=== PATIENT | female | born 1985 | race Caucasian/White ===

== ENCOUNTER 2017-01-23 05:34 | Inpatient (IN) | payer BC ==
--- NOTE | 2017-01-22 20:42 | PCM.LDHP ---
L&D History of Present Illness - General Date of Service: 01/22/17 Admit Problem/Dx: Admission Diagnosis/Problem Admission Diagnosis/Problem 01/22/17 20:29 Janeth is a 31-year-old 2 para 1001 white female who is admitted on 01/23 at 39-1/7 weeks gestational age for a scheduled repeat section. KEVIN is 01/29/2017 based upon a 13-1/7 week ultrasound done on 07/25/2016. First section was done secondary to a true knot in the cord. Patient has been advised as to options of delivery including vaginal after section or repeat section. She opts at this time for elective repeat section. Procedure, risks, benefits, follow-up are discussed with patient in detail. She wishes to proceed and signed consent. 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 Previous delivery include a male born 12/05/2014 at 39 weeks gestational age of 21.5 hours of labor. Baby weighed 7 lbs. 6 oz. and was delivered by primary section for an umbilical cord true knot. Child's name is Julio C MILLS. Patient had menarche at age 13. Cycles come every 28 days. Certainly this menstrual period started on 05/02/2016 not using any control time conception. Positive hCG is on 05/22/2016. course: patient was seen for her first visit on 07/25/2016 at 13 -1/7 weeks gestational age. She was seen on a regular basis and gained approximately 27 pounds in . Her vital signs remained stable throughout the course and her fundal height growth was appropriate. No significant problems were noted during the . She contemplated but since she has not gone into labor at this time is desiring a repeat section. Patient declined genetic evaluation. She had an [place] depression screen on 09/19/2016 which was scored 0. B strep screen is negative. She is rubella nonimmune and therefore is a candidate for measles mumps and rubella immunization after delivery. 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 She has a thyroid nodule. laboratory testing: Her blood is O+. Negative antibody screen. Initial labs showed hemoglobin 13.6 g/dL. Platelets are 297,000. Pap smear was negative. Rubella titer was not immune. RPR is nonreactive. Urine culture was normal. Hepatitis B surface antigen and HIV assays were negative. Chlamydia and gonorrhea are both negative. TSH was normal at 0.618 mU/L. Trimester labs including hemoglobin 11.6 g/dL and a platelet count of 263,000. One-hour GTT was normal at 105. Her TSH and second trimester was normal at 0.790. Group B strep screen was negative. Allergies: penicillin which causes dizziness and rash. Patient has no problems with cephalexin. Medications: 1. Zantac 150 mg daily when necessary for dyspepsia 2. Tylenol PM when necessary 3. vitamins daily 4. Ferrous sulfate 325 mg daily 5. Calcium 600 mg 1 tablet daily Past medical history: 1. iriditis 2. Harsh induced hypertension Past surgical history: 1. 2013. 2. Appendectomy 2004 3. [place] teeth extraction 2006. Family history: Mother and father are alive and well. Mother does have hypercholesterolemia. One brother is alive and well. Maternal grandmother is alive with heart disease and coronary artery bypass surgery. Also has had cancer. Maternal grandmother is secondary to stomach cancer. Paternal grandmother secondary to old age and dementia. Paternal grandfather with history of motor vehicle accident age 60 resulting in his . No , clotting, bleeding or anesthesia problems noted in the family. Social history: Patient is single. She lives in [facility] with her significant other Cruz Roth. She is a college graduate. 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 She denies any significant amounts of alcohol, drugs or tobacco. Review of systems: In general patient has no significant complaints this time. Skin: Negative Respiratory: No shortness of breath or infectious symptoms Cardiovascular: No chest pain or exercise intolerance Breasts: Changes associated only GI: Negative : Changes associated Neurological: Negative Musculoskeletal: Negative Physical exam: General the patient is a well-developed, well-nourished, pleasant pleasant female in no acute distress. Blood pressure last evaluation clinic 01/22/2017 was 108/70. Weight was 216.8 with a first weight of 189 pounds. heart rate is 155. Her prepregnancy BMI was 30.8 and her prepregnancy weight was 185 pounds. Her rate is 5 feet 5 In general the patient is well-developed, well-nourished, pleasant female of stated age in no acute distress. Skin is warm dry without lesions. HEENT, neck and back within normal limits Lungs are clear with good breath sounds in all lung juarez. 30 W. exam shows regular rate Without murmurs. Breast exam is deferred abdomen done first visit and functioning normal. Patient does plan to nurse. Abdomen is protuberant with last fundal height clinic at 41 cm. Baby is in a vertex presentation by Jose Guadalupe maneuver. Cervical exam shows cervix to be 2+ centimeters, mid position, soft, -3, 80% effaced. Extremities show no significant edema at this time Neurological exam is grossly within normal limits. Source of Information: Patient History Limitations: Reports: No Limitations - Related Data Allergies/Adverse Reactions: Allergies Allergy/AdvReac Type Severity Reaction Status Date / Time amoxicillin [Amoxicillin] Allergy Hives Verified 12/05/13 02:41 ampicillin Allergy Hives Verified 12/05/13 02:41 coconut oil Allergy Difficulty Verified 12/05/13 02:41 Breathing Home Medications: Home Meds Ibuprofen [Motrin] 600 mg PO Q6H 12/08/13 [History] oxyCODONE HCl/Acetaminophen [Percocet 5-325 mg Tablet] 1 tab PO Q4HR 12/08/13 [ History] Past Medical History - Past Health History Medical/Surgical History: Denies Medical/Surgical History Social & Family History - Tobacco Use Smoking Status *Q: Light Tobacco Smoker Years of Tobacco use: 6 Used Tobacco, but Quit: Yes Month Tobacco Last Used: oct 2011 - Alcohol Use Days Per Week of Alcohol Use: 0 - Recreational Drug Use Recreational Drug Use: No H&P Review of Systems - Review of Systems: Review Of Systems: See Below L&D Exam - Exam Exam: See Below Problem List Initiated/Reviewed/Updated: Yes Assessment/Plan Comment:: Assessment: 1. 39-1/7 weeks gestational age admitted for scheduled repeat section. Procedure, risks, benefits, alternatives of care including an attempt at are all discussed with patient. She appears to understand, and wishes to proceed. Consent is signed. 2. Patient plans to breast-feed 3. Risk factors for the include history of previous section, thyroid nodule, presents induced hypertension with first , rubella nonimmune 4. Allergy to penicillin but okay with cephalosporins by history. 5. Group B strep negative. Plan: 1. Repeat lower uterine segment transverse section through Pfannenstiel skin incision under spinal block. 2. DVT prophylaxis with SCDs 3. Infection prophylaxis with 2 grams Ancef. 4. Preoperative evaluation consisted of a CBC, type and screen, urinalysis, TSH and free T4 5. Support plans to nurse the baby. 6. MMR after delivery and prior to discharge from the hospital
[~2017-01-23 05:34] MED LIST: Sodium Chloride 0.9% 10 ML Syringe FLUSH PRN
[2017-01-23] MEDS: Lactated Ringers 1,000 ML IV SCH ×3 (06:00→07:24)
[2017-01-23] MEDS ORDERED: Metoclopramide 10 MG/2 ML SDV IVPUSH ONE (06:00)
[2017-01-23] MEDS ORDERED: Citric Acid/Sodium Citrate Solution 30 ML Cup PO ONE (06:00)
[2017-01-23] MEDS ORDERED: Bupivacaine 0.5% 30 ML SDV ONE (06:54)
[2017-01-23] MEDS ORDERED: Morphine PF 10 MG/10 ML SDV ONE (06:55)
[2017-01-23] MEDS ORDERED: Oxytocin 10 Units/1 ML SDV ONE (06:56)
[2017-01-23] MEDS ORDERED: ceFAZolin 1 GM Vial ONE (06:56)
[2017-01-23] MEDS ORDERED: Ondansetron 4 MG/2 ML SDV ONE (06:56)
--- NOTE | 2017-01-23 07:19 | PCM.PREANE ---
Preanesthetic Assessment - Anesthesia/Transfusion/Family Hx Anesthesia History: Prior Anesthesia Without Reaction Family History of Anesthesia Reaction: No Transfusion History: No Prior Transfusion(s) Intubation History: Unknown - Review of Systems General: No Symptoms Pulmonary: No Symptoms Cardiovascular: No Symptoms Gastrointestinal: Other (GERD ) Neurological: No Symptoms Other: Reports: None, Thyroid Problems (post thyroiditis ) - Physical Assessment NPO Status Date: 01/22/17 NPO Status Time: 21:00 Pulse: 92 O2 Sat by Pulse Oximetry: 99 Respiratory Rate: 1 Blood Pressure: 117/75 Temperature: 36.3 C Vital Signs: Last Vital Signs Temp 36.3 C 01/23/17 05:49 Pulse 92 01/23/17 05:49 Resp 1 L 01/23/17 05:49 BP 117/75 01/23/17 05:49 Pulse Ox 99 01/23/17 05:49 Height: 1.65 m Weight: 97.84 kg ASA Class: 2 Mental Status: Alert & Oriented x3 Airway Class: Mallampati = 1 Dentition: Reports: Normal Dentition Thyro-Mental Finger Breadths: 3 Mouth Opening Finger Breadths: 3 ROM/Head Extension: Full Lungs: Clear to Auscultation, Normal Respiratory Effort Cardiovascular: Regular Rate, Regular Rhythm - Allergies Allergies/Adverse Reactions: Allergies Allergy/AdvReac Type Severity Reaction Status Date / Time amoxicillin [Amoxicillin] Allergy Hives Verified 01/23/17 06:16 ampicillin Allergy Hives Verified 01/23/17 06:16 coconut oil Allergy Difficulty Verified 01/23/17 06:16 Breathing - Blood Blood Available: No Product(s) Available: None - Anesthesia Plan Pre-Op Medication Ordered: None - Acknowledgements Anesthesia Type Planned: Spinal (with duramorph) Pt an Appropriate Candidate for the Planned Anesthesia: Yes Alternatives and Risks of Anesthesia Discussed w Pt/Guardian: Yes Pt/Guardian Understands and Agrees with Anesthesia Plan: Yes PreAnesthesia Questionnaire - Past Health History Medical/Surgical History: Denies 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: , Other (See Below) Other OB/BYN History: csection 2013 Endocrine/Metabolic History: Reports: Other (See Below) Other Endocrine/Metabolic History: thyroiditis and thyroid nodule 2013 - Past Surgical History HEENT Surgical History: Reports: Oral Surgery, Other (See Below) Other HEENT Surgeries/Procedures: wisdom teeth 2007 - SUBSTANCE USE Smoking Status *Q: Never Smoker Second Hand Smoke Exposure: No Days Per Week of Alcohol Use: 0 Recreational Drug Use History: No - CURRENT (IN HOUSE) MEDS Current Meds: Current Medications Lactated Ringer's (Ringers, Lactated) 1,000 mls @ 125 mls/hr IV ASDIRECTED [facility] Last Admin: 01/23/17 06:30 Dose: 999 mls/hr Oxytocin/Lactated Ringer's (Pitocin In Lr 10 Units/1,000 Ml) 10 unit in 1,000 mls @ 500 mls/hr IV ASDIRECTED [facility] Cefazolin Sodium/Dextrose 2 gm (/ Premix) 50 mls @ 100 mls/hr IV ONETIME ONE Stop: 01/23/17 08:29 Sodium Chloride (Saline Flush) 10 ml FLUSH ASDIRECTED PRN PRN Reason: Keep Vein Open Discontinued Medications Bupivacaine HCl (Marcaine 0.5%) Confirm Administered Dose 30 ml .ROUTE .STK-MED ONE Stop: 01/23/17 06:55 Cefazolin Sodium (Ancef) Confirm Administered Dose 2 gm .ROUTE .STK-MED ONE Stop: 01/23/17 06:57 Citric Acid/Sodium Citrate (Bicitra Solution) 30 ml PO ONETIME ONE Stop: 01/23/17 06:01 Last Admin: 01/23/17 06:45 Dose: 30 ml Metoclopramide HCl (Reglan) 10 mg IVPUSH ONETIME ONE Stop: 01/23/17 06:01 Last Admin: 01/23/17 06:45 Dose: 10 mg Morphine Sulfate (Duramorph Pf) Confirm Administered Dose 10 mg .ROUTE .STK-MED ONE Stop: 01/23/17 06:56 Ondansetron HCl (Zofran) Confirm Administered Dose 4 mg .ROUTE .STK-MED ONE Stop: 01/23/17 06:57 Oxytocin (Pitocin) Confirm Administered Dose 20 unit .ROUTE .STK-MED ONE Stop: 01/23/17 06:57
[2017-01-23] MEDS ORDERED: Oxytocin/Lactated Ringers 10 UNIT/1,000 ML BAG IV SCH (07:30)
[2017-01-23] MEDS ORDERED: Phenylephrine/Normal Saline 100 MCG/ML 10 ML Syringe ONE (08:00)
[2017-01-23] MEDS ORDERED: ceFAZolin 2 GM in Premix Bag 1 BAG IV ONE (08:00)
[2017-01-23] MEDS ORDERED: ePHEDrine/Normal Saline 25 MG/5 ML Syringe ONE (08:03)
[2017-01-23] MEDS ORDERED: fentaNYL 100 MCG/2 ML SDV IVPUSH PRN (08:29)
[2017-01-23] MEDS ORDERED: diphenhydrAMINE 50 MG/ML SDV IVPUSH PRN ×2 (08:29→09:39)
[2017-01-23] MEDS ORDERED: Meperidine PF 50 MG/ML Syringe IVPUSH PRN (08:29)
[2017-01-23] MEDS ORDERED: Ondansetron 4 MG/2 ML SDV IVPUSH PRN (08:29)
[2017-01-23] MEDS ORDERED: Ketorolac 30 MG/ML SDV ONE (08:47)
--- NOTE | 2017-01-23 08:51 | PCM.OPNOTE ---
- General Post-Op/Procedure Note Date of Surgery/Procedure: 01/23/17 Operative Procedure(s): Repeat lower uterine segment transverse section through Pfannenstiel skin incision Findings: Uterus tubes and ovaries consistent with term . Baby in vertex presentation. Nuchal cord had a true knot present within it and there was nuchal cord loose 1. Amniotic fluid is clear. Lower uterine segment was approximately 5 mm thick. No significant scarring noted. Baby was born at 0802 hrs. on 01/23/2017. scores were 8 and 9. Weight was 7 lbs. 9 oz. Placenta delivered by expression shortly after delivery of the baby. Cord bloods obtained. Was discarded. Pre Op Diagnosis: 39-1/7 week intrauterine , history of previous section desire for repeat section Post-Op Diagnosis: Same with delivery of a viable, ibarra, female infant with Apgars of 8 and 9 at 0802 hrs. on 01/23/2017, weight 7 lbs. 9 oz. Anesthesia Technique: Spinal Other Anesthesia Type: Marcaine 0.5%20 mL Primary Surgeon: Darnell Herbert Secondary Surgeon: Asim Saavedra Anesthesia Provider: Quintin Bryant Surveying Crew Rodman: Cordelia Feldman Reason Surveying Crew Rodman Was Necessary: Retraction, patient safety Role of Surveying Crew Rodman: Retraction Fluid Replacement, Intraop: 1,000 Output, Urine Amount: 200 Drain/Tube Comments:: Indwelling bladder catheter Complications: None Condition: Good Free Text/Narrative:: Surgery duration 40 minutes Procedure: Patient was transferred to the room and placed in a sitting position. Spinal anesthesia was administered. After confirmation of adequate anesthesia patient was placed in a supine position with a wedge under her right side to facilitate left lateral positioning. The patient was prepped and draped in usual fashion after Soto catheter was already placed . The anesthetic was checked and found to be adequate. 20 mL of Marcaine 0.5% was injected locally in the Pfannenstiel incision site. The Pfannenstiel skin incision was then made carried down to skin subcutaneous and fascial layers. The fascia was then undermined superiorly and inferiorly to allow for adequate operating room the recti muscles midline and preperitoneal fat was bluntly dissected. Peritoneal cavity was entered longitudinally. The vesicouterine peritoneum was then incised transversely and bladder flap was developed. Myometrium was incised transversely to the level of the amniotic sac. This incision was extended bilaterally in a blunt fashion. The amniotic sac was then ruptured resulting clear amniotic fluid. A hand is placed in the low uterine segment and the baby's head was brought forth through the incision. The baby was completely delivered using fundal pressure in a routine fashion. The nose and mouth were bulb suctioned. Baby's cord was clamped x2 cut and baby was handed off to attending applied biology professor Dr blackwell. Placenta was expressed after cord blood was obtained. Uterus was then exteriorized to allow for easier closure. The cervix was assessed and found to be dilated adequately to allow egress of blood. The uterus was closed in 2 layers. The first layer a running locked suture of 0 Monocryl, the second layer a running locked vertical mattress suture of 0 Monocryl. Hemostasis confirmed at this time. Sponge instrument needle counts are correct. The uterus was returned to the abdominal cavity and lateral gutters were cleared of blood. Once again sponge needle counts are correct. The anterior abdominal wall was closed with a #1 PDS suture from angle to angle. The subcutaneous area was found to be free of any bleeders. 3 interrupted sutures of 3-0 Monocryl were used to reapproximate the subcutaneous layer.Skin was closed with a running subcuticular stitch of 3-0 Monocryl in a vertical mattress suture fashion using a Oscar needle. Prineo mesh /glue was then applied to further approximate the incision. It should be noted that patient received 2 g of Ancef preoperatively for infection prophylaxis and had Pitocin infused after delivery of the placenta to facilitate uterine contraction. She also had sequential compression stockings in place for DVT prophylaxis. Patient was discharged from the operating room in satisfactory condition.
--- NOTE | 2017-01-23 08:52 | PCM.POSTAN ---
POST ANESTHESIA ASSESSMENT - MENTAL STATUS Mental Status: Alert, Oriented - VITAL SIGNS Pulse Rate: 72 SaO2: 100 Resp Rate: 16 Blood Pressure: 100/53 Temperature: 36.8 C - RESPIRATORY Respiratory Status: Respiratory Rate WNL, Airway Patent, O2 Saturation Stable - CARDIOVASCULAR CV Status: Pulse Rate WNL, Blood Pressure Stable - GASTROINTESTINAL GI Status: No Symptoms - PAIN Pain Score: 0 - POST OP HYDRATION Hydration Status: Adequate & Stable
[2017-01-23] MEDS ORDERED: Naloxone 0.4 MG/ML SDV IVPUSH PRN (09:39)
[2017-01-23] MEDS ORDERED: Docusate Sodium 100 MG Cap PO PRN (09:39)
[2017-01-23] MEDS ORDERED: Dextrose 5%-Lactated Ringers 1,000 ML IV SCH (09:39)
[2017-01-23] MEDS ORDERED: ePHEDrine 50 MG/ML SDV IVPUSH PRN (09:39)
[2017-01-23] MEDS ORDERED: Lanolin 100% Cream 7 GM Tube TOP PRN (09:39)
[2017-01-23] MEDS: Simethicone 80 MG Tab.Chew PO SCH ×4 (12:11→22:19)
[2017-01-23] MEDS: Ibuprofen 800 MG Tab PO SCH ×2 (14:29→22:19)
[2017-01-23] MEDS: Calcium Carbonate 500 MG Tab.Chew PO PRN (21:50)
[2017-01-24] MEDS: Calcium Carbonate 500 MG Tab.Chew PO PRN ×7 (00:42→21:55)
[2017-01-24] MEDS: Acetaminophen/oxyCODONE 325-5 MG Tab PO PRN ×3 (00:45→19:10)
[2017-01-24] MEDS: Prenatal Multivitamin with Calcium/Folic Acid/Iron Tab PO SCH ×2 (01:10→12:50)
[2017-01-24] MEDS: Ibuprofen 800 MG Tab PO SCH ×3 (06:19→21:57)
--- NOTE | 2017-01-24 06:53 | PCM48HPAN ---
Post Anesthesia Note - EVALUATION WITHIN 48HRS OF ANESTHETIC Vital Signs in Normal Range: Yes Patient Participated in Evaluation: Yes Respiratory Function Stable: Yes Airway Patent: Yes Cardiovascular Function Stable: Yes Hydration Status Stable: Yes Pain Control Satisfactory: Yes Nausea and Vomiting Control Satisfactory: Yes Mental Status Recovered: Yes
[2017-01-24] MEDS: Simethicone 80 MG Tab.Chew PO SCH ×4 (11:22→21:57)
--- NOTE | 2017-01-24 14:33 | PCM.SN ---
- Free Text/Narrative Note: Janeth is a 31-year-old now who had a scheduled repeat section on 01/23/2017 at 39-1 weeks. The section went well without complications , although there was a true knot present. She delivered a healthy baby girl named Ashley. Today the patient is post-op day 1. She is taking Motrin and Oxycodone/Tylenol for pain relief. Her Soto catheter was removed at 04:00 hours this morning. No difficulty urinating. Her SCDs were removed as well. She is eating a regular diet and has went for a walk. Lochia has decreased from yesterday. She denies fever, chills, chest pain, nausea, or vomiting. Vitals: WNL Exam: Incision is closed and the mesh is in place. No bleeding, drainage, swelling, or erythema at the incision site. Uterus is firm and below the umbilicus. Abdomen is non-distended and non-tender. Peripheral edema is 1+. Assessment: 1. Post-operative day 1 2. Breast-feeding Plan: 1. Continue post- care per L&D protocol 2. Patient reports that the breast-feeding is going well. services are available if she desires. 3. Will continue to monitor healing progress at the incision site. Will monitor for signs of infection, such as erythema, warmth, edema, and drainage. 4. Discussed how to monitor for signs of DVT, which include erythema, warmth, and swelling of a unilateral leg/calf. 4. Will check on the patient in the morning. Expect discharge on 01/25 or 01/26 depending on the patient's preference.
[2017-01-24] MEDS ORDERED: Measles, Mumps & Rubella Vaccine 0.5 ML SDV SUBCUT ONE (16:45)
[2017-01-25] MEDS: Calcium Carbonate 500 MG Tab.Chew PO PRN ×2 (01:26→03:34)
[2017-01-25] MEDS: Acetaminophen/oxyCODONE 325-5 MG Tab PO PRN ×2 (01:26→07:57)
[2017-01-25] MEDS: Ibuprofen 800 MG Tab PO SCH (06:51)
--- NOTE | 2017-01-25 07:08 | PCM.DCSUM1 ---
Discharge Summary - Hospital Course Free Text/Narrative:: Janeth is a 31-year-old 2 now para 2002 white female was admitted on 01/23/2017 for a scheduled repeat section. Procedure was performed with delivery of a viable 7 lbs. 9 oz. email with Apgars of 8 and 9 at 0802 hrs. on 01/23/2017. Problems were encountered and baby did well. Patient is nursing at this time. She is making normal recovery with good ambulatory, bladder and voiding recovery. Vital signs stable throughout post operative course. She is desiring to be discharged home. - Discharge Data Discharge Date: 01/25/17 Discharge Disposition: Home, Self-Care 01 Condition: Good - Patient Summary/Data Operative Procedure(s) Performed: Repeat lower uterine segment transverse section through Pfannenstiel skin incision - Patient Instructions Diet: Regular Diet as Tolerated (Nursing diet with increased calories and calcium as recommended.) Activity: As Tolerated (No intercourse or tampons until bleeding resolves. No lifting greater than 15 pounds and no driving a car 1 week.) Driving: Do Not Drive Showering/Bathing: May Shower Wound/Incision Care: Keep Operative Site/Wound Site Clean and Dry Notify Provider of: Fever, Increased Pain, Swelling and Redness, Drainage, Nausea and/or Vomiting - Discharge Plan Prescriptions/Med Rec: Acetaminophen/oxyCODONE [Percocet 325-5 MG] 2 tab PO Q4H PRN #30 tablet PRN Reason: Pain (Moderate 4-6) Home Medications: Home Meds Acetaminophen/oxyCODONE [Percocet 325-5 MG] 2 tab PO Q4H PRN #30 tablet [Rx] Ibuprofen [IJD: Ibuprofen] 800 mg PO Q8H tablet 01/25/17 [Rx] Vit with Ca/FA/Iron [ Plus Iron] 1 each PO DAILY tablet [Rx] Referrals: Darnell Herbert MD [Physician] - [id number] - Discharge Summary/Plan Comment DC Time >30 min.: No Discharge Summary/Plan Comment: Discharge instructions: 1. Discharge home 2. Diet, activity and follow-up discussed with patient. Recommend nursing diet with increased calories and calcium. 3. Precautions given concern increased pain, bleeding, temperature, signs/ symptoms of DVT/PE. 4. Medications per home medication was printed, discussed with and given to the patient. 5. Return to clinic-Dr. Herbert[facility] in 2 weeks. Diagnosis: Term -delivered Condition: Good - Patient Data Vitals - Most Recent: Last Vital Signs Temp 36.3 C 01/24/17 19:57 Pulse 78 01/24/17 19:57 Resp 16 01/24/17 19:57 BP 124/77 01/24/17 19:57 Pulse Ox 97 01/24/17 19:57 Weight - Most Recent: 97.84 kg I&O - Last 24 hours: Intake & Output 01/24/17 01/25/17 01/25/17 22:59 06:59 14:59 Intake Total 240 Balance 240 Med Orders - Current: Current Medications Calcium Carbonate/Glycine (Tums) 500 mg PO Q2HR PRN PRN Reason: Indigestion Last Admin: 01/25/17 03:34 Dose: 500 mg Diphenhydramine HCl (Benadryl) 25 mg IVPUSH Q6H PRN PRN Reason: Itching or Nausea Docusate Sodium (Colace) 100 mg PO Q12H PRN PRN Reason: Constipation Last Admin: 01/25/17 06:51 Dose: 100 mg Emollient Ointment (Lansinoh Hpa) 0 gm TOP ASDIRECTED PRN PRN Reason: Sore Nipples Ephedrine Sulfate (Ephedrine Sulfate) 5 mg IVPUSH SEECOMMENT PRN PRN Reason: Other Ibuprofen (Motrin) 800 mg PO Q8H [facility] Last Admin: 01/25/17 06:51 Dose: 800 mg Naloxone HCl (Narcan) 0.1 mg IVPUSH SEECOMMENT PRN PRN Reason: Respiratory Depression Oxycodone/Acetaminophen (Percocet 325-5 Mg) 2 tab PO Q4H PRN PRN Reason: Pain (moderate 4-6) Last Admin: 01/25/17 01:26 Dose: 1 tab Prenat Multivit/Storage Brine Worker/Iron/Folic Ac ( Plus Iron) 1 each PO DAILY [facility] Last Admin: 01/24/17 12:50 Dose: Not Given Simethicone (Simethicone) 80 mg PO PCBED [facility] Last Admin: 01/24/17 21:57 Dose: 80 mg Discontinued Medications Bupivacaine HCl (Marcaine 0.5%) Confirm Administered Dose 30 ml .ROUTE .STK-MED ONE Stop: 01/23/17 06:55 Last Admin: 01/23/17 07:59 Dose: 20 ml Cefazolin Sodium (Ancef) Confirm Administered Dose 2 gm .ROUTE .STK-MED ONE Stop: 01/23/17 06:57 Citric Acid/Sodium Citrate (Bicitra Solution) 30 ml PO ONETIME ONE Stop: 01/23/17 06:01 Last Admin: 01/23/17 06:45 Dose: 30 ml Diphenhydramine HCl (Benadryl) 25 mg IVPUSH Q6H PRN PRN Reason: Pruritis Ephedrine Sulfate (Ephedrine In Ns) Confirm Administered Dose 25 mg .ROUTE .STK- MED ONE Stop: 01/23/17 08:04 Fentanyl (Sublimaze) 50 mcg IVPUSH Q5M PRN PRN Reason: Pain Lactated Ringer's (Ringers, Lactated) 1,000 mls @ 125 [facility]ls[facility] Last Admin: 01/23/17 07:24 Dose: 999 mls/hr Oxytocin/Lactated Ringer's (Pitocin In Lr 10 Units/1,000 Ml) 10 unit in 1,000 mls @ 500 mls[facility] Cefazolin Sodium/Dextrose 2 gm (/ Premix) 50 mls @ 100 mls/hr IV ONETIME ONE Stop: 01/23/17 08:29 Last Admin: 01/24/17 02:53 Dose: Not Given Dextrose/Lactated Ringer's (Dextrose 5%-Lactated Ringers) 1,000 mls @ 125 mls/ [facility] Stop: 01/23/17 17:38 Last Admin: 01/23/17 12:11 Dose: 125 mls/hr Ketorolac Tromethamine (Toradol) Confirm Administered Dose 30 mg .ROUTE .K- [facility] ONE Stop: 01/23/17 08:48 Measles/Mumps/Rubella Vaccine Live (M-M-R Ii Vaccine) 0.5 ml SUBCUT .ONCE ONE Stop: 01/24/17 16:46 Last Admin: 01/24/17 21:55 Dose: 0.5 ml Meperidine HCl (Demerol) 12.5 mg IVPUSH ONETIME PRN PRN Reason: Shivering Metoclopramide HCl (Reglan) 10 mg IVPUSH ONETIME ONE Stop: 01/23/17 06:01 Last Admin: 01/23/17 06:45 Dose: 10 mg Morphine Sulfate (Duramorph Pf) Confirm Administered Dose 10 mg .ROUTE .STK-MED ONE Stop: 01/23/17 06:56 Ondansetron HCl (Zofran) Confirm Administered Dose 4 mg .ROUTE .STK-MED ONE Stop: 01/23/17 06:57 Ondansetron HCl (Zofran) 4 mg IVPUSH ONETIME PRN PRN Reason: Nausea/Vomiting Oxytocin (Pitocin) Confirm Administered Dose 20 unit .ROUTE .STK-MED ONE Stop: 01/23/17 06:57 Phenylephrine HCl (Phenylephrine In Ns 100 Mcg/Ml) Confirm Administered Dose 1 mg .ROUTE .STK-MED ONE Stop: 01/23/17 08:01 Sodium Chloride (Saline Flush) 10 ml FLUSH ASDIRECTED PRN PRN Reason: Keep Vein Open *Q Meaningful Use (DIS) - VTE *Q VTE Criteria *Q: - Stroke *Q Stroke Criteria *Q: - AMI *Q AMI Criteria *Q:
[2017-01-25] MEDS: Prenatal Multivitamin with Calcium/Folic Acid/Iron Tab PO SCH ×2 (07:56→10:55)
[2017-01-25] MEDS: Simethicone 80 MG Tab.Chew PO SCH ×2 (07:57→10:55)
[2017-01-25 10:58] VITALS: BP 124/75
== END 2017-01-25 12:17 | disposition home or self-care (01) | DRG 540 ==
LOC: JD.OB 05:34
PROVIDERS: ADMIT Obstetrics & Gynecology; ATTEND Obstetrics & Gynecology
PROC: 10D00Z1 Extraction of Products of Conception, Low, Open Approach (ICD-10-PCS; principal; 2017-01-23)
DX: O34.211 Maternal care for low transverse scar from previous cesarean delivery (principal); N85.8 Other specified noninflammatory disorders of uterus; O69.2XX0 Labor and delivery complicated by other cord entanglement, with compression, not applicable or unspecified; Z3A.39 39 weeks gestation of pregnancy; Z37.0 Single live birth; Z87.891 Personal history of nicotine dependence; Z88.0 Allergy status to penicillin; Z91.02 Food additives allergy status
CPT/HCPCS: 01961; 36415; 85025; 90471; 90707; A9270-GY; J0690; J1885; J2270; J2405; J2590; J2765; J7042; J7050; J7120

== ENCOUNTER 2019-04-30 06:45 | Day surgery (SDC) | payer BC ==
[~2019-04-30 06:45] MED LIST changes: +Lactated Ringers 1,000 ML IV SCH; +Lidocaine 1%/Sod Bicarbonate in NS 8.4% 1 ML Syringe IDERM PRN
[2019-04-30] MEDS ORDERED: Ondansetron 4 MG/2 ML SDV ONE (07:03)
[2019-04-30] MEDS ORDERED: Midazolam 1 MG/ML 2 ML SDV ONE (07:03)
[2019-04-30] MEDS ORDERED: Dexamethasone 4 MG/ML 5 ML MDV ONE (07:03)
[2019-04-30] MEDS ORDERED: Lidocaine 1% 4 ML ONE (07:03)
[2019-04-30] MEDS ORDERED: Propofol 200 MG/20 ML SDV ONE (07:03)
[2019-04-30] MEDS ORDERED: Rocuronium 50 MG/5 ML Vial ONE (07:03)
[2019-04-30] MEDS ORDERED: fentaNYL 250 MCG/5 ML SDV ONE (07:03)
--- NOTE | 2019-04-30 07:28 | PCM.PREANE ---
Preanesthetic Assessment - Procedure Proposed Procedure: lap choley - Anesthesia/Transfusion/Family Hx Anesthesia History: Prior Anesthesia Without Reaction Family History of Anesthesia Reaction: No Transfusion History: No Prior Transfusion(s) Intubation History: Unknown - Review of Systems General: No Symptoms Pulmonary: No Symptoms Cardiovascular: Chest Pain (due to gall stones) Gastrointestinal: Abdominal Pain (started in nov- intermittent) Neurological: No Symptoms Other: Reports: Thyroid Problems (thyroiditis post ), Anxiety - Physical Assessment NPO Status Date: 04/29/19 (2229) NPO Status Time: 22:30 Vital Signs: 124/79 82 99% 99.4 16 Height: 5 ft 5 in Weight: 85 kg ASA Class: 2 Mental Status: Alert & Oriented x3 Airway Class: Mallampati = 1 Dentition: Reports: Normal Dentition Thyro-Mental Finger Breadths: 3 Mouth Opening Finger Breadths: 3 ROM/Head Extension: Full Lungs: Clear to Auscultation, Normal Respiratory Effort Cardiovascular: Regular Rate, Regular Rhythm, No Murmurs - Allergies Allergies/Adverse Reactions: Allergies Allergy/AdvReac Type Severity Reaction Status Date / Time amoxicillin [Amoxicillin] Allergy Hives Verified 04/29/19 10:06 Penicillins Allergy Rash Verified 04/29/19 10:06 - Blood Blood Available: No - Acknowledgements Anesthesia Type Planned: General Anesthesia Pt an Appropriate Candidate for the Planned Anesthesia: Yes Alternatives and Risks of Anesthesia Discussed w Pt/Guardian: Yes Pt/Guardian Understands and Agrees with Anesthesia Plan: Yes PreAnesthesia Questionnaire - Past Health History Medical/Surgical History: Denies Medical/Surgical History HEENT History: Reports: Sinusitis Cardiovascular History: Reports: Other (See Below) Other Cardiovascular History: CHEST PAIN, HYPERTENSION WITH , Respiratory History: Reports: None Gastrointestinal History: Reports: Other (See Below) Other Gastrointestinal History: RUQ pain, gallstones Genitourinary History: Reports: None 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: , Other (See Below) Other OB/BYN History: csection 2013 Musculoskeletal History: Reports: None Neurological History: Reports: None Psychiatric History: Reports: None, Mood Swings (on new bc pills) Endocrine/Metabolic History: Reports: Obesity/BMI 30+, Vitamin D Deficiency, Other (See Below) Other Endocrine/Metabolic History: thyroiditis and thyroid nodule 2013 Hematologic History: Reports: None Immunologic History: Reports: None Oncologic (Cancer) History: Reports: None Dermatologic History: Reports: None - Past Surgical History Head Surgeries/Procedures: Reports: None HEENT Surgical History: Reports: Myringotomy w Tube(s), Oral Surgery, Other ( See Below) Other HEENT Surgeries/Procedures: wisdom teeth 2007 Respiratory Surgical History: Reports: None GI Surgical History: Reports: Appendectomy, Other (See Below) Other GI Surgeries/Procedures: 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 Female Surgical History: Reports: Section Male Surgical History: Reports: None Neurological Surgical History: Reports: None Musculoskeletal Surgical History: Reports: None Oncologic Surgical History: Reports: None Dermatological Surgical History: Reports: None - SUBSTANCE USE Smoking Status *Q: Former Smoker (quit in 2011) Tobacco Use Within Last Twelve Months: Other (See Below) (chewed and quit 2013) Second Hand Smoke Exposure: Yes Days Per Week of Alcohol Use: 0 Recreational Drug Use History: No - HOME MEDS Home Medications: Home Meds l-Norgest/E.estradion-E.estrad [Daysee 0.15-0.03-0.01 mg Tab] 1 tab PO DAILY 01/07 [History] - CURRENT (IN HOUSE) MEDS Current Meds: Current Medications Lactated Ringer's (Ringers, Lactated) 1,000 mls @ 125 mls/hr IV ASDIRECTED ANNA Stop: 04/30/19 23:00 Lidocaine/Sodium Bicarbonate (Buffered Lidocaine 1% In Ns 8.4%) 0.25 ml IDERM ONETIME PRN PRN Reason: Prior to IV Start Stop: 04/30/19 18:00 Sodium Chloride (Saline Flush) 10 ml FLUSH ASDIRECTED PRN PRN Reason: Keep Vein Open Stop: 04/30/19 18:00 Discontinued Medications Dexamethasone (Dexamethasone) Confirm Administered Dose 20 mg .ROUTE .STK-MED ONE Stop: 04/30/19 07:04 Fentanyl (Sublimaze) Confirm Administered Dose 250 mcg .ROUTE .STK-MED ONE Stop: 04/30/19 07:04 Lidocaine HCl (Xylocaine-Mpf 1%) Confirm Administered Dose 4 mls @ as directed .ROUTE .STK-MED ONE Stop: 04/30/19 07:04 Midazolam HCl (Versed 1 Mg/Ml) Confirm Administered Dose 2 mg .ROUTE .STK-MED ONE Stop: 04/30/19 07:04 Ondansetron HCl (Zofran) Confirm Administered Dose 4 mg .ROUTE .STK-MED ONE Stop: 04/30/19 07:04 Propofol (Diprivan 20 Ml) Confirm Administered Dose 200 mg .ROUTE .STK-MED ONE Stop: 04/30/19 07:04 Rocuronium [place] (Zemuron) Confirm Administered Dose 50 mg .ROUTE .STK-MED ONE Stop: 04/30/19 07:04
[2019-04-30] MEDS ORDERED: Bupivacaine 0.5%/EPINEPHrine 1:200,000 50 ML MDV ONE (07:33)
[2019-04-30] MEDS ORDERED: Clindamycin Phosphate 900 MG in Sodium Chloride 0.9% 100 ML IV ONE (08:02)
[2019-04-30] MEDS ORDERED: HYDROmorphone 0.5 MG/0.5 ML Syringe ONE (08:05)
[2019-04-30] MEDS ORDERED: Clindamycin Phosphate in D5W 900 MG in Premix Bag 1 BAG IV SCH ×2 (08:15)
[2019-04-30] MEDS ORDERED: Ondansetron 4 MG/2 ML SDV IVPUSH PRN (08:16)
[2019-04-30] MEDS ORDERED: HYDROmorphone 0.5 MG/0.5 ML Syringe IVPUSH PRN (08:16)
[2019-04-30] MEDS ORDERED: Ketorolac 30 MG/ML SDV ONE (08:32)
--- NOTE | 2019-04-30 08:51 | PCM.PRNOTE ---
- Free Text/Narrative Note: Operative Report Operation: laparoscopic cholecystectomy Date: 04/30/2019 Attending Surgeon: Flakito Roth MD Indication for Surgery: symptomatic cholelithiasis Preoperative antibiotics: 900 mg clindamycin IV VTE prophylaxis: SCDs Estimated Blood Loss: 5 cc Findings: minor adhesions, normal looking gallbladder with palpable stone at infundibulum Detailed Report: The patient underwent general endotracheal anesthesia after being placed supine on the operating table and initial time out. The abdomen was prepped and draped in sterile fashion. A pre-incision time out was performed confirming the patient s identity and the operation to be performed. A Veress needle was inserted into the abdominal cavity below the left costal margin along the mid-clavicular line. The abdomen was insufflated with CO2 to 15 mm Hg. Gas was aspirated below the umbilicus with a syringe in order to ensure safe placement of a 5 mm bladed laparoscopic port. The 5mm 30 degree laparoscope was then inserted and viscera inspected. There were some midline adhesions from prior surgery, which did not obstruct access to the gallbladder. A single band of omentum was taken down from the anterior abdominal wall to allow optimal visualization. Two additional 5 mm ports were placed along the right subcostal region under direct vision with the laparoscope, and a 12 mm port was placed at the subxiphoid region. The gallbladder was grasped at the fundus with a locking grasper and retracted anteriorly and superiorly, exposing the infundibulum. There were some flimsy adhesions of the omentum to the body of the gallbladder. The infundibulum was exposed and grasped with the surgeons left hand grasper and retracted laterally. The hook electrode was used to open the overlying peritoneum, and this plane of dissection was developed along the edges of the gallbladder at its interface with the liver bed. The hook was used to carefully expose and skeletonize the cystic duct and artery. A critical view of safety was obtained. Hemolock clips were then placed on both structures. The duct and artery were transected with laparoscopic scissors between the hemolock clips. The hook was then used to dissect the gallbladder free from its attachment to the liver. The specimen was then placed in an Endocatch bag and removed through the subxiphoid port. The liver bed was inspected and appeared hemostatic. The larger subxiphoid port was closed at the level of the fascia with vicryl suture using the PMI laparoscopic suture passer. Pneumoperitoneum was then released. All skin incisions were then closed with placement of subcuticular vicryl suture and dressed with dermabond. A total of 20 cc 0.5% marcaine with epinephrine was used for local anesthesia at the incision sites. The patient tolerated the operation well, was extubated in the operating room and transferred to the PACU for routine post-anesthesia care. Flakito Roth MD General Surgery
--- NOTE | 2019-04-30 08:58 | PCM.POSTAN ---
POST ANESTHESIA ASSESSMENT - MENTAL STATUS Mental Status: Alert, Oriented - VITAL SIGNS Vital Signs: Last Vital Signs Temp 99.4 F 04/30/19 07:05 Pulse 82 04/30/19 07:05 Resp 16 04/30/19 07:05 BP 124/79 04/30/19 07:05 Pulse Ox 99 04/30/19 07:05 140/78 106 22 98.8 100% - RESPIRATORY Respiratory Status: Respiratory Rate WNL, Airway Patent, O2 Saturation Stable, Supplemental Oxygen - CARDIOVASCULAR CV Status: Pulse Rate WNL, Blood Pressure Stable - GASTROINTESTINAL GI Status: No Symptoms - PAIN Pain Score: 0 - POST OP HYDRATION Hydration Status: Adequate & Stable
[2019-04-30] MEDS: fentaNYL 100 MCG/2 ML SDV IVPUSH PRN ×2 (09:09→09:44)
--- NOTE | 2019-04-30 09:58 | PCM48HPAN ---
Post Anesthesia Note - EVALUATION WITHIN 48HRS OF ANESTHETIC Vital Signs in Normal Range: Yes Patient Participated in Evaluation: Yes Respiratory Function Stable: Yes Airway Patent: Yes Cardiovascular Function Stable: Yes Hydration Status Stable: Yes Pain Control Satisfactory: Yes Nausea and Vomiting Control Satisfactory: Yes Mental Status Recovered: Yes (no complaints- smiling) Vital Signs: Last Vital Signs Temp 98.9 F 04/30/19 09:50 Pulse 74 04/30/19 09:50 Resp 13 04/30/19 09:50 BP 113/79 04/30/19 09:50 Pulse Ox 99 04/30/19 09:50
[2019-04-30] MEDS ORDERED: oxyCODONE 5 MG Tab PO PRN (10:02)
[2019-04-30 12:54] VITALS: BP 111/72; PULSE 87
== END 2019-04-30 11:55 | disposition home or self-care (01) ==
LOC: JD.SDS 06:45
PROVIDERS: ATTEND Surgery
DX: K80.10 Calculus of gallbladder with chronic cholecystitis without obstruction (principal); G89.29 Other chronic pain; E66.9 Obesity, unspecified; Z88.0 Allergy status to penicillin; Z79.899 Other long term (current) drug therapy; Z90.49 Acquired absence of other specified parts of digestive tract; Z87.891 Personal history of nicotine dependence; Z68.31 Body mass index [BMI] 31.0-31.9, adult
CPT/HCPCS: 47562; 81025; A9270; J1100; J1170; J1885; J2001; J2250; J2405; J2704; J2710; J3010; J3490; J7120; 00790